=== PATIENT | male | born 1970 | race Caucasian/White ===

== ENCOUNTER 2019-05-02 01:10 | Emergency (ER) | payer SELFPAY ==
[2019-05-02] MEDS ORDERED: LORazepam 2 MG/ML VIAL IV PRN ×3 (02:50)
--- NOTE | 2019-05-02 02:54 | Emergency Department Report ---
<TERESA JUNE - Last Filed: 05/02/19 05:07> ED Alcohol HPI - General Chief Complaint: Anxiety Stated Complaint: FEELING NERVOUS Time Seen by Provider: 05/02/19 02:44 Source: patient Mode of arrival: Ambulatory Limitations: No Limitations - History of Present Illness Initial Comments: Patient is a 48-year-old male with no significant past medical history except for chronic alcohol abuse. Patient presented to the ER complaining of feeling nervous and shaking all over. Patient stated that he stop drinking 3 da ys ago. Patient denies any hallucination. No seizure. Patient also denied any chest pain or shortness of breath. Patient is also requesting alcohol detox. MD Complaint: alcohol withdrawal, desires rehab Time Since Last Drink: 3 (3 days ago) -: days(s) Chronic Alcohol Use: Yes Recent Trauma: No Associated Symptoms: tremors Treatments Prior to Arrival: none - Related Data Previous Rx's Medication Instructions Recorded Last Taken Type Multivitamin with Folic Acid [[facility] 400 mcg PO QDAY #30 tablet 05/02/19 Unknown Rx One Daily Essential Tablet] chlordiazePOXIDE [Librium] 25 mg PO Q6H PRN #25 capsule 05/02/19 Unknown Rx Allergies Allergy/AdvReac Type Severity Reaction Status Date / Time No Known Allergies Allergy Unverified 05/02/19 03:14 ED Review of Systems Comment: All other systems reviewed and negative Constitutional: denies: chills, fever Respiratory: denies: cough, shortness of breath, SOB with exertion, SOB at rest, wheezing Cardiovascular: palpitations. denies: chest pain Gastrointestinal: denies: abdominal pain, nausea, vomiting, diarrhea, constipation, hematemesis, melena, hematochezia Musculoskeletal: denies: back pain Skin: denies: rash Neurological: denies: headache, weakness, numbness, paresthesias, confusion, abnormal gait Psychiatric: anxiety. denies: depression, auditory hallucinations, visual hallucinations, homicidal thoughts, suicidal thoughts ED Past Medical Hx - Past Medical History Previous Medical History?: No - Surgical History Past Surgical History?: No - Social History Smoking Status: Current Every Day Smoker Substance Use Type: Alcohol - Medications Home Medications: Home Medications Medication Instructions Recorded Confirmed Last Taken Type Multivitamin with Folic Acid [[facility] 400 mcg PO QDAY #30 tablet 05/02/19 Unknown Rx One Daily Essential Tablet] chlordiazePOXIDE [Librium] 25 mg PO Q6H PRN #25 capsule 05/02/19 Unknown Rx ED Physical Exam - General Limitations: No Limitations General appearance: alert, in no apparent distress, anxious - Head Head exam: Present: atraumatic, normocephalic, normal inspection - Eye Eye exam: Present: normal appearance, PERRL - ENT ENT exam: Present: normal exam, normal orophraynx, mucous membranes moist - Neck Neck exam: Present: normal inspection, full ROM. Absent: tenderness, meningismus, lymphadenopathy, thyromegaly - Respiratory Respiratory exam: Present: normal lung sounds bilaterally - Cardiovascular Cardiovascular Exam: Present: regular rate, normal rhythm, normal heart sounds - GI/Abdominal GI/Abdominal exam: Present: soft, normal bowel sounds. Absent: distended, tenderness, guarding, rebound, rigid, hyperactive bowel sounds, hypoactive bowel sounds, organomegaly, mass, bruit, pulsatile mass, hernia - Extremities Exam Extremities exam: Present: normal inspection, full ROM, normal capillary refill. Absent: tenderness, pedal edema, calf tenderness - Back Exam Back exam: Present: normal inspection, full ROM. Absent: CVA tenderness (R), CVA tenderness (L) - Neurological Exam Neurological exam: Present: alert, oriented X3, CN II-XII intact, normal gait, reflexes normal. Absent: motor sensory deficit - Psychiatric Psychiatric exam: Present: normal mood, anxious. Absent: depressed, agitated, flat affect, manic, homicidal ideation, suicidal ideation - Skin Skin exam: Present: warm, intact, normal color ED Medical Decision Making - Lab Data Result diagrams: 05/02/19 03:07 05/02/19 03:07 - Medical Decision Making Patient is a 48-year-old male with no significant past medical history except for chronic alcohol abuse. Patient presented to the ER complaining of feeling nervous and shaking all over. Patient stated that he stop drinking 3 days ago. Patient denies any hallucination. No seizure. Patient also denied any chest pain or shortness of breath. Patient is also requesting alcohol detox. Patient started on CIWA protocol. Labs reviewed and is unremarkable except for slightly elevated liver enzymes. Mental health evaluation requested. ED Disposition Clinical Impression: Encounter for alcohol rehabilitation Disposition: DC-01 TO HOME OR SELFCARE Condition: Stable Additional Instructions: Please minimize alcohol consumption. If consuming alcohol, do not combine with other sedating medications, or other recreational drugs. Do not consume alcohol and operate motor vehicles, or make important decisions at this time. Use Danika rium medication as needed for sensation of alcohol withdrawal, and take multivitamins at directed. Please follow-up with the primary care doctor within the next 4-6 weeks. follow up with outpatient alcohol detox rehabilitation facilities which were provided to the patient at a time it is convenient for the patient. Please return to the emergency room right away with new, worsening, different symptoms, or symptoms not present on the initial emergency room evaluation. Referrals: [facility] [Provider Group] - as needed [facility] [Provider Group] - as needed <MELINDA OROT - Last Filed: 05/02/19 10:46> ED Review of Systems ROS: Stated complaint: FEELING NERVOUS Other details as noted in HPI ED Course Vital Signs 05/02/19 05/02/19 05/02/19 00:26 00:30 00:46 Temperature Pulse Rate 82 80 79 Respiratory 14 32 H 11 L Rate Blood Pressure Blood Pressure [Left] O2 Sat by Pulse 98 97 97 Oximetry 05/02/19 05/02/19 05/02/19 01:17 02:58 03:00 Temperature 97.3 F L Pulse Rate 85 85 79 Respiratory 18 12 11 L Rate Blood Pressure 127/96 Blood Pressure [Left] O2 Sat by Pulse 98 98 Oximetry 05/02/19 05/02/19 05/02/19 03:22 03:24 03:30 Temperature Pulse Rate 90 84 Respiratory 15 18 13 Rate Blood Pressure Blood Pressure [Left] O2 Sat by Pulse 98 98 Oximetry 05/02/19 05/02/19 05/02/19 03:46 04:00 04:16 Temperature Pulse Rate 92 H 87 84 Respiratory 23 18 21 Rate Blood Pressure 116/72 Blood Pressure [Left] O2 Sat by Pulse 97 95 97 Oximetry 05/02/19 05/02/19 05/02/19 04:30 04:46 05:00 Temperature Pulse Rate 91 H 80 79 Respiratory 19 19 20 Rate Blood Pressure 116/72 116/72 116/72 Blood Pressure [Left] O2 Sat by Pulse 100 98 98 Oximetry 05/02/19 05/02/19 05/02/19 06:00 06:16 06:30 Temperature Pulse Rate 77 83 Respiratory 16 22 20 Rate Blood Pressure 95/59 95/59 95/59 Blood Pressure [Left] O2 Sat by Pulse 99 98 97 Oximetry 05/02/19 05/02/19 05/02/19 06:46 07:00 07:16 Temperature Pulse Rate Respiratory 17 15 15 Rate Blood Pressure 95/59 107/76 107/76 Blood Pressure [Left] O2 Sat by Pulse 96 97 96 Oximetry 05/02/19 07:58 Temperature Pulse Rate 84 Respiratory 16 Rate Blood Pressure Blood Pressure 107/76 [Left] O2 Sat by Pulse 98 Oximetry - Reevaluation(s) Reevaluation #1: 05/02/19 10:43 Patient resting comfortably, and in no acute distress. He does not endorse any physical pain at this time. Resting comfortably in stretcher. Clinically sober at this time. Vital signs, laboratory studies unremarkable. EKG reviewed and appreciated. Seen in conjunction with psychiatric liaison. Patient will be referred to outpatient alcohol detox. ED Medical Decision Making - Lab Data Result diagrams: 05/02/19 03:07 05/02/19 03:07 Vital Signs 05/02/19 05/02/19 05/02/19 00:26 00:30 00:46 Temperature Pulse Rate 82 80 79 Respiratory 14 32 H 11 L Rate Blood Pressure Blood Pressure [Left] O2 Sat by Pulse 98 97 97 Oximetry 05/02/19 05/02/19 05/02/19 01:17 02:58 03:00 Temperature 97.3 F L Pulse Rate 85 85 79 Respiratory 18 12 11 L Rate Blood Pressure 127/96 Blood Pressure [Left] O2 Sat by Pulse 98 98 Oximetry 05/02/19 05/02/19 05/02/19 03:22 03:24 03:30 Temperature Pulse Rate 90 84 Respiratory 15 18 13 Rate Blood Pressure Blood Pressure [Left] O2 Sat by Pulse 98 98 Oximetry 05/02/19 05/02/19 05/02/19 03:46 04:00 04:16 Temperature Pulse Rate 92 H 87 84 Respiratory 23 18 21 Rate Blood Pressure 116/72 Blood Pressure [Left] O2 Sat by Pulse 97 95 97 Oximetry 05/02/19 05/02/19 05/02/19 04:30 04:46 05:00 Temperature Pulse Rate 91 H 80 79 Respiratory 19 19 20 Rate Blood Pressure 116/72 116/72 116/72 Blood Pressure [Left] O2 Sat by Pulse 100 98 98 Oximetry 05/02/19 05/02/19 05/02/19 06:00 06:16 06:30 Temperature Pulse Rate 77 83 Respiratory 16 22 20 Rate Blood Pressure 95/59 95/59 95/59 Blood Pressure [Left] O2 Sat by Pulse 99 98 97 Oximetry 05/02/19 05/02/19 05/02/19 06:46 07:00 07:16 Temperature Pulse Rate Respiratory 17 15 15 Rate Blood Pressure 95/59 107/76 107/76 Blood Pressure [Left] O2 Sat by Pulse 96 97 96 Oximetry 05/02/19 07:58 Temperature Pulse Rate 84 Respiratory 16 Rate Blood Pressure Blood Pressure 107/76 [Left] O2 Sat by Pulse 98 Oximetry Lab Results 05/02/19 05/02/19 05/02/19 Range/Units 03:07 03:07 03:07 WBC 10.1 (4.5-11.0) K/mm3 RBC 5.80 H (3.65-5.03) M/mm3 Hgb 18.6 H (11.8-15.2) gm/dl Hct 53.2 H (35.5-45.6) % MCV 92 (84-94) fl MCH 32 (28-32) pg MCHC 35 H (32-34) % RDW 13.9 (13.2-15.2) % Plt Count 223 (140-440) K/mm3 Lymph % (Auto) 17.3 (13.4-35.0) % [place] % (Auto) 9.1 H (0.0-7.3) % Eos % (Auto) 0.6 (0.0-4.3) % Baso % (Auto) 0.4 (0.0-1.8) % Lymph # 1.8 (1.2-5.4) K/mm3 [place] # 0.9 H (0.0-0.8) K/mm3 Eos # 0.1 (0.0-0.4) K/mm3 Baso # 0.0 (0.0-0.1) K/mm3 Seg Neutrophils % 73.9 H (40.0-70.0) % Seg Neutrophils # 7.5 (1.8-7.7) K/mm3 Sodium 133 L (137-145) mmol/L Potassium 4.3 (3.6-5.0) mmol/L Chloride 94.0 L (98-107) mmol/L Carbon Dioxide 26 (22-30) mmol/L Anion Gap 17 mmol/L BUN 7 L (9-20) mg/dL Creatinine 0.6 L (0.8-1.5) mg/dL Estimated GFR > 60 ml/min BUN/Creatinine Ratio 12 % Glucose 111 H (75-100) mg/dL Calcium 9.9 (8.4-10.2) mg/dL Magnesium (1.7-2.3) mg/dL Total Bilirubin 2.90 H (0.1-1.2) mg/dL AST 45 H (5-40) units/L ALT 27 (7-56) units/L Alkaline Phosphatase 112 (35-129) units/L Total Protein 8.8 H (6.3-8.2) g/dL Albumin 4.8 (3.9-5) g/dL Albumin/Globulin Ratio 1.2 % Plasma/Serum Alcohol < 0.01 (0-0.07) % 05/02/19 Range/Units 03:07 WBC (4.5-11.0) K/mm3 RBC (3.65-5.03) M/mm3 Hgb (11.8-15.2) gm/dl Hct (35.5-45.6) % MCV (84-94) fl MCH (28-32) pg MCHC (32-34) % RDW (13.2-15.2) % Plt Count (140-440) K/mm3 Lymph % (Auto) (13.4-35.0) % [place] % (Auto) (0.0-7.3) % Eos % (Auto) (0.0-4.3) % Baso % (Auto) (0.0-1.8) % Lymph # (1.2-5.4) K/mm3 [place] # (0.0-0.8) K/mm3 Eos # (0.0-0.4) K/mm3 Baso # (0.0-0.1) K/mm3 Seg Neutrophils % (40.0-70.0) % Seg Neutrophils # (1.8-7.7) K/mm3 Sodium (137-145) mmol/L Potassium (3.6-5.0) mmol/L Chloride (98-107) mmol/L Carbon Dioxide (22-30) mmol/L Anion Gap mmol/L BUN (9-20) mg/dL Creatinine (0.8-1.5) mg/dL Estimated GFR ml/min BUN/Creatinine Ratio % Glucose (75-100) mg/dL Calcium (8.4-10.2) mg/dL Magnesium 2.50 H (1.7-2.3) mg/dL Total Bilirubin (0.1-1.2) mg/dL AST (5-40) units/L ALT (7-56) units/L Alkaline Phosphatase (35-129) units/L Total Protein (6.3-8.2) g/dL Albumin (3.9-5) g/dL Albumin/Globulin Ratio % Plasma/Serum Alcohol (0-0.07) % - EKG Data -: EKG Interpreted by Me EKG shows normal: sinus rhythm Rate: normal - EKG Data 05/02/19 10:44 There is no prior EKG available for comparison. The EKG shows a sinus rhythm, there is a normal axis, QTC is prolonged, there is motion artifact, TN interval within normal limits, EKG not consistent with ST elevation myocardial infarction. Critical care attestation.: If time is entered above; I have spent that time in minutes in the direct care of this critically ill patient, excluding procedure time. ED Disposition Is pt being admited?: No Does the pt Need Aspirin: No
[2019-05-02 03:29] LABS: Eosinophils # (Auto) 0.1 K/mm3 (0.0-0.4); Eosinophils % (Auto) 0.6 % (0.0-4.3); Monocytes # (Auto) 0.9 K/mm3 (0.0-0.8); Monocytes % (Auto) 9.1 % (0.0-7.3)
[2019-05-02 03:52] LABS: Alanine Aminotransferase 27 units/L (7-56); Albumin 4.8 g/dL (3.9-5); BUN/Creatinine Ratio 12; Blood Urea Nitrogen 7 mg/dL (9-20); Calcium 9.9 mg/dL (8.4-10.2); Hemolysis Index 42
[2019-05-02 03:57] LABS: Basophils % (Auto) 0.4 % (0.0-1.8); Hematocrit 53.2 % (35.5-45.6); Hemoglobin 18.6 gm/dl (11.8-15.2); Lymphocytes # (Auto) 1.8 K/mm3 (1.2-5.4); Lymphocytes % (Auto) 17.3 % (13.4-35.0); Mean Corpuscular HGB Conc 35 % (32-34); Mean Corpuscular Volume 92 fl (84-94); Platelet Count 223 K/mm3 (140-440); Red Cell Distribution Width 13.9 % (13.2-15.2)
[2019-05-02] MEDS ORDERED: D5W/0.45% NACL 1,000 ML IV SCH (07:00)
[2019-05-02 12:39] VITALS: BP 110/84
== END 2019-05-02 12:39 | disposition home or self-care (01) ==
LOC: ED 01:10
DX: F10.239 Alcohol dependence with withdrawal, unspecified (principal); F17.200 Nicotine dependence, unspecified, uncomplicated
CPT/HCPCS: 36415; 80053; 83735; 85025; 93005; 93010; 96374; 99284; J2060; 80320; G0480